=== PATIENT | female | born 1980 | race Caucasian/White ===

== ENCOUNTER 2020-08-31 16:19 | Emergency (ER) | payer OTHER ==
[~2020-08-31] VITALS: Ht 170.2 cm; Wt 97.5 kg
[2020-08-31 16:55] LABS: URINE BILIRUBIN NEGATIVE (Negative); URINE BLOOD TRACE (Negative); URINE CLARITY CLEAR; URINE COLOR YELLOW; URINE GLUCOSE-RANDOM NEGATIVE (Negative); URINE KETONES NEGATIVE (Negative); URINE LEUKOCYTES-REFLEX NEGATIVE (Negative); URINE NITRITE-REFLEX NEGATIVE (Negative); URINE PROTEIN NEGATIVE (Negative); URINE UROBILINOGEN 0.2 E.U./dl (0.2-1.0)
[2020-08-31] MEDS ORDERED: CEPHALEXIN500 MG PO ×2 (17:55→17:56)
[2020-08-31] MEDS ORDERED: PYRIDIUM100 M1 PO ×2 (17:55→17:56)
[2020-08-31 18:10] VITALS: BP 131/89
== END 2020-08-31 18:10 | disposition home or self-care (01) ==
LOC: M.ERS 16:19
PROVIDERS: Nurse Practitioner Family
DX: R30.0 Dysuria (principal); Z98.51 Tubal ligation status; Z90.49 Acquired absence of other specified parts of digestive tract; Z98.890 Other specified postprocedural states

== ENCOUNTER 2020-10-14 12:07 | Emergency (ER) | payer OTHER ==
[~2020-10-14 12:07] MED LIST: CEPHALEXIN500 MG PO; PYRIDIUM100 M1 PO
== END 2020-10-14 12:50 | disposition left against medical advice (07) ==
LOC: M.ERS 12:07
DX: Z53.21 Procedure and treatment not carried out due to patient leaving prior to being seen by health care provider (principal)

== ENCOUNTER 2020-12-25 15:46 | Emergency (ER) | payer OTHER ==
[~2020-12-25] VITALS: Ht 170.2 cm; Wt 94.8 kg
[2020-12-25 16:00] VITALS: BP 146/83
[2020-12-25] MEDS ORDERED: PREDNISONE 20 M20 MG PO (16:34)
== END 2020-12-25 17:23 | disposition home or self-care (01) ==
LOC: M.ERS 15:46
DX: T78.40XA Allergy, unspecified, initial encounter (principal); Z90.49 Acquired absence of other specified parts of digestive tract; Z98.51 Tubal ligation status; X58.XXXA Exposure to other specified factors, initial encounter